=== PATIENT | male | born 1950 | race Caucasian/White ===

== ENCOUNTER 2025-02-10 08:55 | Day surgery (SDC) | payer MEDICARE, OTHER ==
--- NOTE | 2025-02-04 12:40 | ELECTROCARDIOGRAPH REPORT ---
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 JACQUELINE Huang Measurements Intervals [place] Rate: 86 P: 83 FL: 131 QRS: -30 QRSD: 146 T: 146 QT: 409 QTc: 490 Interpretive Statements A-V dual-paced rhythm with some inhibition No further analysis attempted due to paced rhythm Electronically Signed On 02-04-2025 17:19:[address] JACQUELINE Huang Please click the below link to view image of tracing.
[2025-02-04 12:51] LABS: BASOPHILS # (AUTO) 0.1 X10'3 (0-0.2); BASOPHILS % (AUTO) 1.4 % (0-1); EOSINOPHILS # (AUTO) 0.3 X10'3 (0-0.9); EOSINOPHILS % (AUTO) 3.7 % (0-6); LYMPHOCYTES # (AUTO) 0.8 X10'3 (1.1-4.8); LYMPHOCYTES % (AUTO) 10.4 % (21-51); MEAN CORPUSCULAR HEMOGLOBIN 24.5 PG (27.0-31.0); MEAN CORPUSCULAR HGB CONC 31.5 g/dL (33.0-36.5); MEAN CORPUSCULAR VOLUME 77.9 FL (78-98); MEAN PLATELET VOLUME 9.7 FL (7.4-10.4); MONOCYTES # (AUTO) 0.9 X10'3 (0-0.9); MONOCYTES % (AUTO) 11.5 % (2-12); NEUTROPHILS # (AUTO) 5.7 X10'3 (1.8-7.7); PRE OP HEMATOCRIT 42.4 % (42.0-52.0); PRE OP HEMOGLOBIN 13.4 g/dL (14.0-17.9); PRE OP PLATELET COUNT 212 X10'3 (140-440); PRE OP WHITE BLOOD COUNT 7.9 10'3 (4.8-10.8); RED BLOOD COUNT 5.45 X10'6 (4.70-6.10); RED CELL DISTRIBUTION WIDTH 17.7 % (11.5-14.5)
[2025-02-04 13:05] LABS: ALBUMIN 3.5 G/DL (3.4-5.0); ALBUMIN/GLOBULIN RATIO 0.8 (1.1-1.5); ALKALINE PHOSPHATASE 98 IU/L (46-116); BLOOD UREA NITROGEN 8 MG/DL (7-18); BUN/CREATININE RATIO 8.1 (10.0-20.0); CALCIUM 8.8 MG/DL (8.5-10.1); CHLORIDE 100 MMOL/L (99-107); CREATININE 0.99 MG/DL (0.60-1.10); PRE OP ALT 25 U/L (30-65); PRE OP ANION GAP 9 (8-16); PRE OP AST 22 U/L (10-37); PRE OP BILIRUB, TOTAL 0.5 MG/DL (0.0-1.0); PRE OP GLUCOSE 111 MG/DL (70-104); PRE OP POTASSIUM 3.8 MMOL/L (3.4-5.1); PRE OP SODIUM 138 MMOL/L (135-145); TOTAL CARBON DIOXIDE 28.9 MMOL/L (24-32); TOTAL PROTEIN 7.8 G/DL (6.4-8.2); eGFR 74 ML/MIN
[2025-02-10] VITALS (11 sets, daily range): BP systolic 115–155; BP diastolic 67–88; PULSE 60–76; RESP 11–18; TEMP 97.8; O2SAT 94–100
[~2025-02-10] VITALS: Ht 175.3 cm; Wt 88.5 kg
[~2025-02-10 08:55] MED LIST: ALBU18HF2 INH; ASPI81TA52 PO; DIPH25CA83 PO; EZET10TA48 PO; FURO40TA4 PO; MELA10TA2 PO; METO-395 PO; MONT-47 PO; NAPR-1168 PO; POTA-206 PO; TIOT4MIS3; ZOLP-679 PO; ringers solution, lacted 1,000 ML IV SCH
[2025-02-10] MEDS: ceFAZolin 2gm/dext,iso 50mL 50 ML IV ONE (09:27)
[2025-02-10] MEDS: DOCUMENT DATE & TIME OF BETA-BLOCKER PO ONE (09:28)
[2025-02-10] MEDS: famotidine 20mg tablet PO ONE (09:33)
[2025-02-10] MEDS ORDERED: ringers solution, lacted 1,000 ML IV SCH (09:35)
[2025-02-10] MEDS ORDERED: proCHLORperazine 10 MG/2 ml inj IV PRN (09:35)
[2025-02-10] MEDS ORDERED: labetalol 20mg/4ml (5mg/ml) syringe IV PRN (09:35)
[2025-02-10] MEDS ORDERED: HYDROmorphone/PF 0.2 MG/ML SYRINGE IV PRN (09:35)
[2025-02-10] MEDS ORDERED: morphine 2 MG/ML inj. syringe IV PRN (09:35)
[2025-02-10] MEDS ORDERED: morphine 4 MG/ML inj SYRINge IV PRN (09:35)
[2025-02-10] MEDS ORDERED: ondansetron/PF 4mg/2ml inj IV PRN (09:35)
[2025-02-10] MEDS ORDERED: hydrALAZINE 20mg/ml inj. IV PRN (09:35)
[2025-02-10] MEDS ORDERED: meperidine/PF 25mg/ml syringe IV PRN (09:35)
[2025-02-10] MEDS ORDERED: BUPIVAcaine 2.5mg/ml inj 50ml vial (contains preservative) ONE (10:35)
[2025-02-10] MEDS ORDERED: LIDOcaine 1% 30ml preserv. free vial ONE (10:35)
[2025-02-10] MEDS ORDERED: fentaNYL/PF 50MCG/1 ML 2ML syringe ONE (10:58)
[2025-02-10] MEDS ORDERED: midazolam 1 mg/ML 2ml injection ONE (10:59)
[2025-02-10] MEDS ORDERED: ondansetron/PF 4mg/2ml inj ONE ×2 (11:14→11:22)
[2025-02-10] MEDS ORDERED: sevoflurane 250ml liquid IH ONE (11:21)
[2025-02-10] MEDS ORDERED: dexamethasone sod phosphate 4mg/ml inj. ONE (11:22)
[2025-02-10] MEDS ORDERED: propofol inj 20 ML IV ONE (11:22)
[2025-02-10] MEDS ORDERED: LIDOcaine 2% (20mg/ml) 5ml vial ONE (11:22)
[2025-02-10] MEDS: BUPIVAcaine/PF 2.5 mg/ml (0.25%) 30ml vial IJ ONE (12:11)
--- NOTE | 2025-02-10 12:52 | OPERATIVE REPORT ---
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 Patient was placed supine and general anesthesia was induced. Using the CT scan and PET scan as guidance, the site on the upper medial aspect of the right thigh was marked with a skin marker on the spot overlying the expected lesion in the right sartorius muscle. Patient had previously undergone core needle biopsy that proved undiagnosed. General anesthesia was induced. The right thigh was prepped and draped in the standard sterile fashion. Skin incision was made from lateral to medial in an oblique fashion. This was deepened down through subcutaneous tissues until the sartorius muscle was identified. The sartorius muscle was mobilized. The entire segment of mobilized muscle was palpated and no palpable lesion was identified. Using a hemostat, the muscle was split in its midportion over an area of a proximally 7-1/2 cm. No lesion was identified. Once again, radiographic images including the CT scan and PET-CT scan were reviewed, measured, and found to correlate almost exactly with the surgical incision. Lesion appeared to be within the midbody of the sartorius muscle just below the level of the greater trochanter and in the sartorius muscle were runs lateral to the femoral artery. The segment of sartorius muscle was once again examined, palpated and no lesion was identified. The decision to resect that segment of sartorius muscle was made given the patient's ongoing concern for metastatic lesion to that area. Muscle was cross clamped above and below the expected site of hypermetabolic activity. Muscle was divided between the clamps and passed off the field. An approximately 6 cm segment of muscle was resected. The ends were suture ligated using absorbable suture. Hemostasis was assured. Wound was closed in layers with absorbable suture and the skin incision was dressed with Dermabond. Patient was awakened and taken to the postanesthesia care unit in stable condition. Counts repoted as correct: Yes DUDLEY WRAY MD Feb 10, 2025 12:52
[2025-02-10] MEDS: HYDROmorphone/PF 0.2 MG/ML SYRINGE IV PRN (12:56)
[2025-02-10] MEDS: acetaminophen 1,000mg/100ml IV 100 ML IV PRN (13:11)
[2025-02-10] MEDS: oxyCODONE/APAP 5-325mg tablet PO PRN (13:37)
--- NOTE | 2025-02-11 10:28 | PATHOLOGY REPORT ---
[facility] [address] [place] [address] SURGICAL PATHOLOGY REPORT CaseNumber: [id number] Surgeon:Dudley Varela M.D. CLINICAL INFORMATION CLINICAL INFORMATION: Tumor thigh right. DIAGNOSIS DIAGNOSIS: THIGH, RIGHT; EXCISION - BENIGN SKELETAL MUSCLE WITH MILDLY INCREASED INTRAMUSCULAR ADIPOSE TISSUE. - NO MALIGNANT FEATURES ARE IDENTIFIED. MICROSCOPIC DESCRIPTION MICROSCOPIC DESCRIPTION: 8 H&E-stained sections are reviewed. They show multiple sections of skeletal muscle without evidence of a malignant process. The skeletal muscle fibers appear viable, and the fa scicles appropriately sized. Fascicular atrophy is not appreciated. No significant inflammatory compo nent is seen. There is mildly increased adipose tissue extending in between muscle fascicles, however , a discrete mass lesion to suggest a lipoma is not appreciated. The adipocytes appear benign. GROSS DESCRIPTION GROSS DESCRIPTION: Received in formalin labeled with the patient's name, number, and "segment right S artorius muscle" is 2.5 x 3.5 x 1.5 excision of muscle. The margins are marked with black ink. Sec tioning fails to reveal a discrete mass lesion. The specimen is entirely submitted as [id number]. Receiv ed in the same container is a 2 x 3 x 1.5 cm excision of muscle. The margins are marked with black i nk. Sectioning fails to reveal a discrete mass lesion. The specimen is entirely submitted as [id number]. The time at which the specimen was removed was 1200. The time at which the specimen was placed in f ormalin was 1205. ([facility]) Electronically signed by: Isaac García, 02/11/2025 9:57:00 AM
== END 2025-02-10 13:54 | disposition home or self-care (01) ==
LOC: PAS 08:55
PROVIDERS: ATTEND Surgery
DX: M62.89 Other specified disorders of muscle (principal); E78.5 Hyperlipidemia, unspecified; F43.10 Post-traumatic stress disorder, unspecified; M19.90 Unspecified osteoarthritis, unspecified site; I10 Essential (primary) hypertension; Z79.899 Other long term (current) drug therapy; Z98.890 Other specified postprocedural states; Z91.040 Latex allergy status; Z79.82 Long term (current) use of aspirin
CPT/HCPCS: 27339; 36415; 80053; 82948; 85025; 93005; A4215; A4618; A7000; J0131; J1100; J1171; J2003; J2250; J2405; J2704; J3010; J3490; J7030; J7120; Z7506; Z7508; Z7512; Z7610